=== PATIENT | male | born 1970 | race Caucasian/White ===

== ENCOUNTER → 2016-11-24 | Day surgery (SDC) | payer BC ==
--- NOTE | 2016-11-19 20:38 | Pre-op HX & Phy Repo 2 SIG ---
DATE OF ADMISSION: 11/24/2016 SCHEDULED FOR OUTPATIENT SURGERY ON 11/24/2016 HISTORY OF PRESENT ILLNESS: The patient is a 46-year-old, male in good health with a recent history of a left groin bulge. He is scheduled to undergo repair of a left inguinal hernia. The patient has not been having significant pain but is always aware of the hernia. He has no gastrointestinal or genitourinary symptoms. PAST MEDICAL HISTORY: . MEDICATIONS: None. ALLERGIES: None. OPERATIONS: 1. Left ACL repair in 1996. 2. Right ACL repair in 2003. 3. Right meniscus repair in 2012. 4. Vasectomy in 2008. 5. Reversal of vasectomy in August 2016. PHYSICAL EXAMINATION: GENERAL: The patient is 5 foot 11 inches and 175 pounds. HEENT: Within normal limits. LUNGS: Clear. HEART: Regular rhythm. BREASTS: Without masses. ABDOMEN: Soft. There is a small reducible left inguinal hernia at the pubic tubercle. The right inguinal canal was intact. GENITOURINARY: Testes and scrotum were negative. EXTREMITIES: No edema. Pulses 4+ femoral to pedal bilaterally. RECTAL: Per urologist recently. NEUROLOGIC: Physiologic. IMPRESSION: Left inguinal hernia. PLAN: Full discussion has been had with the patient regarding the nature of his condition, the nature of the surgery, indications, alternatives, options, and risks including bleeding, infection, recurrence despite use of mesh, neuritis or neuralgia, testicular or scrotal swelling, or other abnormality, etc. All questions have been answered. He understands and agrees to proceed as an outpatient at the local anesthesia with intravenous sedation and anesthesia monitoring. Brant Corey M.D. DR: TAVO JOB#: [id number] CC:
[2016-11-24] VITALS (10 sets, daily range): BP systolic 104–119; BP diastolic 64–79
[~2016-11-24] VITALS: Ht 180.3 cm; Wt 77.1 kg
[~2016-11-24] MED LIST: Bupivacaine 0.5% Inj 30 ml vial INJ ONE; Hydromorphone 0.5mg/0.5ml inj IVP PRN; Ketorolac 30mg Inj ONE; LR 1000ml 1,000 ML IV SCH; LR 1000ml 1,000 ML IVLG SCH; LR 1000ml ONE; Lidocaine 1% Plain 30 ml INJ ONE; Midazolam 2mg/2ml Inj ONE; NKM; Norco 5mg/325mg tab ORAL PRN; Propofol 10mg/ml 20ml IV ONE; Sterile Water Irrig 1000ml IRRIG ONE; ceFAZolin sod 1 GM in NS 55 ML IVPB ONE; fentaNYL 100 mcg/2 mL IV ONE
[2016-11-24 09:29] LABS: BASOPHILS % (AUTO) 2.1 % (0.0-2.0); EOSINOPHILS % (AUTO) 2.3 % (0.0-3.0); LYMPHOCYTES % (AUTO) 28.1 % (20.0-45.0); MEAN CORPUSCULAR HEMOGLOBIN 29.8 PG (27.0-31.0); MEAN CORPUSCULAR HGB CONC 32.7 G/DL (32.0-36.0); MEAN CORPUSCULAR VOLUME 91 FL (80-99); NEUTROPHILS % (AUTO) 57.5 % (45.0-75.0); PLATELET COUNT 257 K/UL (150-450); RED BLOOD COUNT 5.47 M/UL (4.70-6.10); RED CELL DISTRIBUTION WIDTH 11.7 % (11.6-14.8); WHITE BLOOD COUNT 5.4 K/UL (4.8-10.8)
--- NOTE | 2016-11-24 09:42 | Pre-Procedure Note/Attestation ---
Pre-Procedure Note/Attestation Complete Prior to Procedure Planned Procedure: left Procedure Narrative: repair left inguinal hernia with mesh Indications for Procedure Pre-Operative Diagnosis: left inguinal hernia Attestation I attest that I discussed the nature of the procedure; its benefits; risks and complications; and alternatives (and the risks and benefits of such alternatives ), prior to the procedure, with the patient (or the patient's legal rental sales representative). I attest that, if there was a reasonable possibility of needing a blood transfusion, the patient (or the patient's legal rental sales representative) was given the [facility] standardized written summary, pursuant to the [place] Blood Safety Act ([place] Health and Safety Code # 1645, as amended). I attest that I re-evaluated the patient just prior to the surgery and that there has been no change in the patient's H&P, except as documented below: none YO MITTAL Nov 24, 2016 09:42
[2016-11-24 10:11] LABS: ALANINE AMINOTRANSFERASE 10 U/L (3-41); ALBUMIN/GLOBULIN RATIO 1.3 (1.0-2.7); ANION GAP 11 (5-15); ASPARTATE AMINO TRANSFERASE 15 U/L (5-40); CALCIUM 9.5 mg/dL (8.6-10.2); CARBON DIOXIDE 28 mEQ/L (20-30); CHLORIDE 102 mEQ/L (98-107); GLOMERULAR FILTRATION RATE > 60 mL/min (>60); HEMOLYSIS 9; POTASSIUM 5.3 mEQ/L (3.4-4.9); SODIUM 141 mEQ/L (135-145); TOTAL PROTEIN 6.7 g/dL (6.6-8.7)
--- NOTE | 2016-11-24 11:03 | Anethesia Preoperative Eval ---
Anesthesia Pre-op PMH/ROS General Date of Evaluation: Nov 24, 2016 Time of Evaluation: 10:10 Anesthesiologist: Sarah ASA Score: ASA 1 Mallampati Score Class I : Soft palate, uvula, fauces, pillars visible Class II: Soft palate, uvula, fauces visible Class III: Soft palate, base of uvula visible Class IV: Only hard plate visible Mallampati Classification: Class II Surgeon: Madhav Diagnosis: Left IH Surgical Procedure: Left IH with mesh Family History: no anesthesia problems Allergies: Coded Allergies: No Known Allergies (Unverified , 11/19/16) Past Medical History Cardiovascular: Denies: CAD, HTN, NM, arrhythmia, other, valve dz Pulmonary: Denies: COPD, MARIFER, asthma, other Gastrointestinal/Genitourinary: Denies: CRI, ESRD, GERD, other Neurologic/Psychiatric: Denies: CVA, TIA, dementia, depression/anxiety, other Endocrine: Denies: DM, hypothyroidism, other, steroids HEENT: Denies: [place] (L), [place] (R), cataract (L), cataract (R), glaucoma, other Hematology/Immune: Denies: DVT, anemia, bleeding disorder, other Musculoskeletal/Integumentary: Reports: OA PMH Narrative: Denies PSxH Narrative: Multiple surgeries including bilateral ACL, vasectomy and reversal ( approximately 1 month ago) Anesthesia Pre-op Phys. Exam Physician Exam Last Vital Signs Date Time Temp Pulse Resp B/P Pulse Ox O2 Delivery O2 Flow Rate FiO2 11/24/16 08:56 97.7 72 20 115/69 99 Room Air Constitutional: NAD Neurologic: CN 2-12 intact Cardiovascular: RRR, no M/R/G Respiratory: CTA Gastrointestinal: S/NT/ND Airway Exam Mallampati Score: Class II MO: full ROM: full Teeth: intact Anesthesia Pre-op A/P Labs Hematology Test 11/24/16 08:45 White Blood Count 5.4 K/UL (4.8-10.8) Red Blood Count 5.47 M/UL (4.70-6.10) Hemoglobin 16.3 G/DL (14.2-18.0) Hematocrit 49.9 % (42.0-52.0) Mean Corpuscular Volume 91 FL (80-99) Mean Corpuscular Hemoglobin 29.8 PG (27.0-31.0) Mean Corpuscular Hemoglobin Concent 32.7 G/DL (32.0-36.0) Red Cell Distribution Width 11.7 % (11.6-14.8) Platelet Count 257 K/UL (150-450) Mean Platelet Volume 6.0 FL (6.5-10.1) L Neutrophils (%) (Auto) 57.5 % (45.0-75.0) Lymphocytes (%) (Auto) 28.1 % (20.0-45.0) Monocytes (%) (Auto) 10.0 % (1.0-10.0) Eosinophils (%) (Auto) 2.3 % (0.0-3.0) Basophils (%) (Auto) 2.1 % (0.0-2.0) H Chemistry Test 11/24/16 09:40 Sodium Level 141 mEQ/L (135-145) Potassium Level 5.3 mEQ/L (3.4-4.9) H Chloride Level 102 mEQ/L (98-107) Carbon Dioxide Level 28 mEQ/L (20-30) Anion Gap 11 (5-15) Blood Urea Nitrogen 10 mg/dL (7-23) Creatinine 1.0 mg/dL (0.7-1.2) Estimat Glomerular Filtration Rate > 60 mL/min (>60) Glucose Level 98 mg/dL (74-106) Calcium Level 9.5 mg/dL (8.6-10.2) Total Bilirubin < 0.2 mg/dL (0.0-1.2) Aspartate Amino Transf (AST/SGOT) 15 U/L (5-40) Alanine Aminotransferase (ALT/SGPT) 10 U/L (3-41) Alkaline Phosphatase 84 U/L (40-129) Total Protein 6.7 g/dL (6.6-8.7) Albumin 3.9 g/dL (3.5-5.2) Globulin 2.8 g/dL Albumin/Globulin Ratio 1.3 (1.0-2.7) Studies Pre-op Studies: EKG - NSR Risk Assessment & Plan Assessment: Healthy male Plan: GA, LMA Status Change Before Surgery: No Pre-Antibiotics Drug: Ancef Given Within 1 Hr of Incision: Yes Time Given: 10:30 MARY REID M.D. Nov 24, 2016 11:03
--- NOTE | 2016-11-24 11:04 | Immediate Post-Op Evaluation ---
Immediate Post-Op Evalulation Immediate Post-Op Evalulation Procedure: Left IH with mesh Date of Evaluation: Nov 24, 2016 Time of Evaluation: 12:00 IV Fluids: 500 Blood Pressure Systolic: 104 Blood Pressure Diastolic: 64 Pulse Rate: 70 Respiratory Rate: 13 O2 Sat by Pulse Oximetry: 99 Temperature (Fahrenheit): 98.0 Pain Score (1-10): 0 Nausea: No Vomiting: No Complications No complication Patient Status: reacts, patent, none Hydration Status: adequate Drug: Ancef Given Within 1 Hr of Incision: Yes Time Given: 10:30 MARY REID M.D. Nov 24, 2016 11:04
--- NOTE | 2016-11-24 11:48 | Brief Operative Note ---
Immediate Post Operative Note Operative Note Pre-op Diagnosis: left inguinal hernia Procedure: repair left inguinal hernia with prolene mesh Post-op Diagnosis: left inguinal indirect hernia Post-op Diagnosis: same as pre-op Findings: consistent w/pre-op dx studies Surgeon: devika Anesthesiologist: farida Anesthesia: general Specimen: yes - hernia sac Complications: none Condition: stable Estimated Blood Loss: minimal Drains: none Implant(s) used?: Yes - prolene mesh YO MITTAL Nov 24, 2016 11:48
--- NOTE | 2016-11-24 12:00 | 48 Hour Post Anesthesia Eval ---
Post Anesthesia Evaluation Procedure: Left IH with mesh Date of Evaluation: Nov 24, 2016 Time of Evaluation: 12:30 Blood Pressure Systolic: 114 0: 67 Pulse Rate: 65 Respiratory Rate: 12 O2 Sat by Pulse Oximetry: 99 Airway: patent Nausea: No Vomiting: No Pain Intensity: 0 Hydration Status: adequate Cardiopulmonary Status: Stable Mental Status/LOC: patient returned to baseline Follow-up Care/Observations: As per surgery Post-Anesthesia Complications: No anesthetic complication Follow-up care needed: N/A MARY REID M.D. Nov 24, 2016 12:00
--- NOTE | 2016-11-24 20:19 | Operative Note - Dictated ---
DATE OF OPERATION: 11/24/2016 SURGEON: Brant Corey M.D. REFRIGERATION INSTALLER SURGEON: None. ANESTHESIOLOGIST: Ezra Smith M.D. TYPE OF ANESTHESIA: General LMA. PREOPERATIVE DIAGNOSIS: Left inguinal hernia. POSTOPERATIVE DIAGNOSIS: Left indirect inguinal hernia. OPERATION PERFORMED: Repair of left inguinal hernia with Prolene mesh. DESCRIPTION OF PROCEDURE: The patient was taken to the operating room and under anesthesia with sequential compression device stockings in place, he was prepped and draped in usual fashion. Throughout the procedure, local anesthesia of 1% lidocaine plain with 0.5% Marcaine plain was used for infiltration. A transverse curvilinear left groin incision was made achieving hemostasis with cautery. The external oblique aponeurosis was opened through the external ring preserving the ilioinguinal nerve. The spermatic cord was mobilized at the pubic tubercle and elevated to the internal ring. There was no direct inguinal hernia. Dissecting anteromedially in the cord, the obvious indirect inguinal hernia sac was identified. There was moderately severe scarring of the spermatic cord to the sac. The sac was opened and using cautery for hemostasis as well as blunt dissection, a high circumferential dissection was performed well into the internal ring. The sac was ligated near its base with 2-0 Vicryl and the remaining sac excised as specimen. This hernia sac stump was readily reduced. The repair was accomplished by taking a piece of Prolene mesh, cut and tapered appropriately measuring approximately 5 x 9 cm and soaked in antibiotic solution. First the inferior edge of the mesh was sutured to the shelving edge of inguinal ligament starting at pubic tubercle and extending lateral to the internal ring with continuous 2-0 Prolene. Then, the lateral aspect of the mesh was split longitudinally so the tails could encircle the cord. Then, the medial-superior edge of the mesh was sutured to transversus tendon again starting at pubic tubercle and extending lateral to the internal ring. Then, the superior tail was sutured over the inferior tail to the inguinal ligament with a suture of 2-0 Prolene. The newly created internal ring of mesh was somewhat patulous and was narrowed medial to the internal ring with a single suture of 2-0 Prolene. The field was irrigated with antibiotic solution and hemostasis was satisfactory and the repair appeared very satisfactory without tension. The field was irrigated with antibiotic solution at each stage of closure. The external oblique aponeurosis was closed with continuous 2-0 Vicryl, then Allison fascia closed with interrupted 3-0 Vicryl and several interrupted subcutaneous 3-0 Vicryl sutures placed. The skin was closed with continuous 4-0 Monocryl subcuticular suture. Tincture of benzoin and half-inch Steri-Strips were applied followed by dry sterile dressing. Final sponge and needle counts were correct. At the end of the procedure, the testis was readily retracted well down into the scrotum. The patient tolerated the procedure well and left the operating room in good condition. Brant Corey M.D. DR: TAVO JOB#: [id number] CC:
--- NOTE | 2016-11-27 12:03 | Cardiology Report ---
APPROVED REPORT EKG Measurement Heart [id number] ND [id number] Sinus rhythm with short ND Otherwise normal ECG
== END | disposition home or self-care (01) ==
LOC: SUR 08:28
DX: K40.90 Unilateral inguinal hernia, without obstruction or gangrene, not specified as recurrent (principal); M19.90 Unspecified osteoarthritis, unspecified site
CPT/HCPCS: 36415; 49505; 80053; 85025; 93005; C1781; J0690; J1885; J2001; J2250; J2405; J2704; J3010; J3490; J7120; 94003; 94150